=== PATIENT | female | born 1960 | race Caucasian/White ===

== ENCOUNTER 2022-05-23 16:30 | Emergency (ER) | payer MEDICARE ==
[2022-05-23 17:36] LABS: HEMOGLOBIN 13.8 gm/dl (12.3-15.3); RED BLOOD COUNT 4.57 M/UL (4.00-5.10); WHITE BLOOD COUNT 4.9 K/UL (4.5-11.0)
[2022-05-23 17:54] LABS: BUN/CREATININE RATIO 20 (0-10)
[2022-05-23] MEDS ORDERED: PROVENTIL HFA6.7 GM INH (19:22)
[2022-05-23] MEDS ORDERED: PREDNISONE 50 M50 MG PO (19:22)
== END 2022-05-23 20:19 | disposition home or self-care (01) ==
LOC: ER1 16:30
PROVIDERS: Student in an Organized Health Care Education/Training Program
DX: U07.1 COVID-19 (principal); I10 Essential (primary) hypertension
CPT/HCPCS: 71045; 80053; 81001; 83880; 84484; 85025; 93005; 99285; U0002